=== PATIENT | male | born 1980 | race Caucasian/White ===

== ENCOUNTER 2021-01-09 20:48 | Emergency (ER) | payer MEDICAID ==
[~2021-01-09] VITALS: Ht 175.3 cm; Wt 118.2 kg
[2021-01-09 21:59] LABS: COVID AG,FIA SOURCE NASAL SWAB
[2021-01-09 22:42] VITALS: BP 155/104
== END 2021-01-09 23:26 | disposition home or self-care (01) ==
LOC: EMS 20:50
DX: U07.1 COVID-19 (principal)
CPT/HCPCS: 87426; 99283; U0003